=== PATIENT | female | born 1985 | race Caucasian/White ===

== ENCOUNTER 2020-01-03 21:11 | Emergency (ER) | payer BC, OTHER ==
[~2020-01-03] VITALS: Ht 172.2 cm; Wt 130.6 kg
--- OUTSIDE RECORDS SUMMARY | 2020-01-03 21:20 | XMS REPORT | Continuity of Care Document ---
Demographics x Preferred Language Unknown Marital Status Unknown Religion Affiliation Unknown Race Unknown Ethnic Group Unknown Author Organization Unknown Address Unknown Phone Unavailable Allergies There is no data. Medications There is no data. Problems There is no data. Procedures There is no data. Results Test Result Range LIPID PANEL - 01/29/19 11:45 CHOLESTEROL, TOTAL 159 mg/dL <200 HDL CHOLESTEROL 28 mg/dL >50 TRIGLYCERIDES 204 mg/dL <150 LDL-CHOLESTEROL 99 mg/dL (calc) NRG CHOL/HDLC RATIO 5.7 (calc) <5.0 NON HDL CHOLESTEROL 131 mg/dL (calc) <13 0 CMP - 01/29/19 11:45 GLUCOSE 93 mg/dL 65-99 UREA NITROGEN (BUN) 12 mg/dL 7-25 CREATININE 0.72 mg/dL 0.50-1.10 eGFR NON-AFR. [place] 112 mL/min/1.73m2 > OR = 60 eGFR 129 mL/min/1.73m2 > OR = 60 BUN/CREATININE RATIO NOT APPLICABLE (calc) 6-22 SODIUM 139 mmol/L 135-146 POTASSIUM 4.4 mmol/L 3.5-5.3 CHLORIDE 104 mmol/L 98-110 CARBON DIOXIDE 24 mmol/L 20-32 CALCIUM 8.8 mg/dL 8.6-10.2 PROTEIN, TOTAL 7.0 g/dL 6.1-8.1 ALBUMIN 4.2 g/dL 3.6-5.1 GLOBULIN 2.8 g/dL (calc) 1.9-3.7 ALBUMIN/GLOBULIN RATIO 1.5 (calc) 1.0-2. 5 BILIRUBIN, TOTAL 0.4 mg/dL 0.2-1.2 ALKALINE PHOSPHATASE 98 U/L 33-115 AST 14 U/L 10-30 ALT 22 U/L 6-29 Encounters ACCT No. Visit Date/Time Discharge Status Pt. Type Provider Facility Loc./Unit Complaint [id number] 02/27/2019 10:00:00 02/27/2019 23:59: 59 CLS Outpatient [facility] [id number] 01/29/2019 11:20:00 Document Registration
[2020-01-03 21:31] VITALS: BP 146/88
[2020-01-03] MEDS ORDERED: RX-ONDANSETRON 4 MG ODT (ZOFRAN) PPK #4 ONE (21:37)
[2020-01-03] MEDS ORDERED: ONDANSETRON 4 MG (ZOFRAN) ORAL DISSOLVE TAB PO STA (21:40)
[2020-01-03] MEDS ORDERED: RX-ONDANSETRON 4 MG ODT (ZOFRAN) PPK #4 PO STA (21:41)
[2020-01-03] MEDS ORDERED: TRIM/SULFAMETH 160/800 (SEPTRA DS) TAB PO ONE (21:45)
[2020-01-03] MEDS ORDERED: LEVOFLOXACIN 500 MG TAB (LEVAQUIN) PO ONE (21:45)
--- NOTE | 2020-01-03 21:49 | ED Integumentary General ---
General Chief Complaint: Skin/Wound Problems Stated Complaint: INFECTED LEFT LEG Nursing Triage Note: Patient states that she had a sore spot in her left groin that began approximately 4-5 days ago. Patient states that it "broke open" at approximately 7am today. Patient describes a foul smelling discharge that continued through the day. Patient states that the area is discolored and she hasn't felt good all day. Patient does have a golf ball sized area that is discolored and swollen. There is a blister like center that is open. No current discharge is noted. History of Present Illness Date Seen by Provider: January 03, 2020 Time Seen by Provider: 21:15 Initial Comments Patient has a lesion on the upper left crease over the thigh started off as a red dot became purple more indurated and larger even up to 4-5 cm and this morning broke open large amount of very purulent foul-smelling material from and no fever no chills but has had some nausea and malaise and just not feeling w ell. Did not see an insect of any kind is never had a MRSA infection before. Timing/Duration: week Severity: moderate Location: extremities Possible Cause: no cause identified, insect bite Associated Symptoms: headache, malaise; No numbness, No rash, No sore throat Allergies and Home Medications Allergies Coded Allergies: Penicillins (Verified Allergy, Severe, Anaphylaxis, 01/03/20) acetaminophen (Verified Allergy, Severe, Anaphylaxis, 01/03/20) cephalexin (Verified Allergy, Severe, Anaphylaxis, 01/03/20) hydrocodone (Verified Allergy, Severe, Anaphylaxis, 01/03/20) Patient Home Medication List Home Medication List Reviewed: Yes Review of Systems Review of Systems Constitutional: No chills, No fever; malaise EENTM: No blurred vision, No double vision, No nose congestion, No throat pain, No throat swelling Respiratory: No cough, No short of breath Cardiovascular: No no symptoms reported Gastrointestinal: No abdominal pain, No constipation, No diarrhea; nausea; No vomiting Genitourinary: No dysuria, No frequency Musculoskeletal: No joint pain, No joint swelling; muscle pain Skin: other (skin lesion left inguinal region) Psychiatric/Neurological: Headache; Denies Numbness, Denies Paresthesia Past Gmysczn-Zdwjrc-Qoabub Hx Past Med/Social Hx: Reviewed Nursing Past Med/Soc Hx Patient Social History Alcohol Use: Denies Use Recreational Drug Use: No Smoking Status: Current Everyday Smoker Type Used: Cigarettes Recent Foreign Travel: No Contact w/Someone Who Travel: No Recent Infectious Disease Expo: No Physical Abuse: No Sexual Abuse: No Mistreated: No Fear: No Past Medical History Surgeries: Yes Appendectomy, Gallbladder, Tonsillectomy Respiratory: No Cardiac: No Neurological: No Genitourinary: No Gastrointestinal: No Musculoskeletal: No Endocrine: No HEENT: No Cancer: No Psychosocial: No Integumentary: No Physical Exam Vital Signs Vital Signs - First Documented 01/03/20 21:31 Temp 37.0 Pulse 93 Resp 18 B/P (MAP) 146/88 (107) Pulse Ox 100 O2 Delivery Room Air Capillary Refill : Less Than 3 Seconds General Appearance: WD/WN, mild distress HEENT: PERRL/EOMI, TMs normal, pharynx normal Neck: non-tender, full range of motion Cardiovascular: regular rate, rhythm, no murmur Respiratory: chest non-tender, lungs clear Gastrointestinal: normal bowel sounds, soft; No distended, No tenderness Extremities: normal range of motion, non-tender, normal inspection Neurologic/Psychiatric: no motor/sensory deficits, normal mood/affect, oriented x 3 Skin: normal color, warm/dry, other (large area of induration at the left inguinal region with the 3 mm open area right in the inguinal area no evidence of fluctuance or obvious liters drained before consistent with a spider bite but also could represent a MRSA infection.) Progress/Results/Core Measures Results/Orders My Orders Orders - SANDRA ROLDAN JR, MD Sulfamethoxazole/Trimet Ds Tab (Bactrim (01/03/20 21:45) Levofloxacin Tablet (Levaquin Tablet) (01/03/20 21:45) Ondansetron Oral Dissolve Tab (Zofran (01/03/20 21:40) Rx-Ondansetron Po (Rx-Zofran Po) (01/03/20 21:41) Vital Signs/I&O 01/03/20 21:31 Temp 37.0 Pulse 93 Resp 18 B/P (MAP) 146/88 (107) Pulse Ox 100 O2 Delivery Room Air Blood Pressure Mean: 107 Progress Progress Note : Time: 21:47 Progress Note Noting May presentation classic look for brown recluse bites of the feel like this was #1 although MRSA could possibly present like this since she is allergic to several antibiotics will cover her with Levaquin and Bactrim give her some Zofran will follow-up if problems didn't say this could get worse with rash body aches fever and chills as well and would need to recheck with her PCP Departure Impression Primary Impression: Brown recluse spider bite Qualified Codes: T63.331A - Toxic effect of venom of brown jackiese spider, accidental (unintentional), initial encounter Disposition: HOME, SELF-CARE Condition: Stable Departure-Patient Inst. Referrals: YU HINTON (PCP/Family) Primary Care Physician Patient Instructions: Spider Bites Scripts Sulfamethoxazole/Trimethoprim (Bactrim Ds Tablet) 1 Each Tablet 1 EACH PO BID, #20 TAB Prov: SANDRA ROLDAN JR, MD 01/03/20 Levofloxacin (Levaquin) 500 Mg Tablet 500 MG PO DAILY for 10 Days, #10 TAB Prov: SANDRA ROLDAN JR, MD 01/03/20 SANDRA ROLDAN JR, MD January 03, 2020 21:49
[2020-01-03] MEDS ORDERED: LEVO500T2 PO (21:50)
[2020-01-03] MEDS ORDERED: SULF1TAB35 PO (21:50)
== END 2020-01-03 21:53 | disposition home or self-care (01) ==
LOC: ER FS 21:16
DX: T63.331A Toxic effect of venom of brown recluse spider, accidental (unintentional), initial encounter (principal); F17.210 Nicotine dependence, cigarettes, uncomplicated; Z88.0 Allergy status to penicillin; Z88.6 Allergy status to analgesic agent; Z88.1 Allergy status to other antibiotic agents; Z88.5 Allergy status to narcotic agent
CPT/HCPCS: 99283

== ENCOUNTER 2020-02-28 22:05 | Emergency (ER) | payer BC ==
[~2020-02-28] VITALS: Ht 172 cm; Wt 132.0 kg
[~2020-02-28 22:05] MED LIST: LEVO500T2 PO; SULF1TAB35 PO
--- OUTSIDE RECORDS SUMMARY | 2020-02-28 22:12 | XMS REPORT | Continuity of Care Document ---
Demographics x Preferred Language Unknown Marital Status Unknown Judaism Affiliation Unknown Race Unknown Ethnic Group Unknown Author Organization Unknown Address Unknown Phone Unavailable Allergies Active Description Code Type Severity Reaction Onset Reported/Identified Relationship to Patient Clinical Status Yes acetaminophen [id number] Dung g Allergy Severe Anaphylaxis 01/03/2020 Yes cephalexin [id number] Drug Allerg y Severe Anaphylaxis 01/03/2020 Yes hydrocodone [id number] Drug Aller gy Severe Anaphylaxis 01/03/2020 Yes Penicillins [id number] Drug Aller gy Severe Anaphylaxis 01/03/2020 Medications There is no data. Problems Date Dx Coded Attending Type Code Diagnosis Diagnosed By 01/03/2020 SANDRA ROLDAN MD, Ot F17.210 NICOTINE DEPENDENCE, CIGARETTES, UNCOMPL 01/03/2020 SANDRA ROLDAN MD Ot T63.331A TOXIC EFFECT OF VENOM OF BROWN RECLUSE S 01/03/2020 SANDRA ROLDAN MD Ot Z88.0 ALLERGY STATUS TO PENICILLIN 01/03/2020 SANDRA ROLDAN MD Ot Z88.1 ALLERGY STATUS TO OTHER ANTIBIOTIC AGENT 01/03/2020 SANDRA ROLDAN MD Ot Z88.5 ALLERGY STATUS TO NARCOTIC AGENT STATUS 01/03/2020 SANDRA ORLDAN MD Ot Z88.6 ALLERGY STATUS TO ANALGESIC AGENT STATUS 01/05/2020 SANDRA ROLDAN MD Ot F17.210 NICOTINE DEPENDENCE, CIGARETTES, UNCOMPL 01/05/2020 SANDRA ROLDAN MD Ot T63.331A TOXIC EFFECT OF VENOM OF BROWN RECLUSE S 01/05/2020 SANDRA ROLDAN MD Ot Z88.0 ALLERGY STATUS TO PENICILLIN 01/05/2020 SANDRA ROLDAN MD Ot Z88.1 ALLERGY STATUS TO OTHER ANTIBIOTIC AGENT 01/05/2020 SANDRA ROLDAN MD Ot Z88.5 ALLERGY STATUS TO NARCOTIC AGENT STATUS 01/05/2020 SANDRA ROLDAN MD, Ot Z88.6 ALLERGY STATUS TO ANALGESIC AGENT STATUS Procedures There is no data. Results Test Result Range LIPID PANEL - 01/29/19 11:45 CHOLESTEROL, TOTAL 159 mg/dL <200 HDL CHOLESTEROL 28 mg/dL >50 TRIGLYCERIDES 204 mg/dL <150 LDL-CHOLESTEROL 99 mg/dL (calc) NRG CHOL/HDLC RATIO 5.7 (calc) <5.0 NON HDL CHOLESTEROL 131 mg/dL (calc) <13 0 [facility] - 01/29/19 11:45 GLUCOSE 93 mg/dL 65-99 UREA NITROGEN (BUN) 12 mg/dL 7-25 CREATININE 0.72 mg/dL 0.50-1.10 eGFR NON-AFR. KYRGY[place] 112 mL/min/1.73m2 > OR = 60 eGFR [...] 14 U/L 10-30 ALT 22 U/L 6-29 [facility] - 01/20/20 15:12 GLUCOSE 79 mg/dL 65-99 UREA NITROGEN (BUN) 10 mg/dL 7-25 CREATININE 0.81 mg/dL 0.50-1.10 eGFR NON-AFR. KYRGYZ 96 mL/min/1.73m2 > OR = 60 eGFR 111 mL/min/1.73m2 > OR = 60 BUN/CREATININE RATIO NOT APPLICABLE (calc) 6-22 SODIUM 139 mmol/L 135-146 POTASSIUM 4.2 mmol/L 3.5-5.3 CHLORIDE 104 mmol/L 98-110 CARBON DIOXIDE 25 mmol/L 20-32 CALCIUM 8.8 mg/dL 8.6-10.2 PROTEIN, TOTAL 6.8 g/dL 6.1-8.1 ALBUMIN 4.1 g/dL 3.6-5.1 GLOBULIN 2.7 g/dL (calc) 1.9-3.7 ALBUMIN/GLOBULIN RATIO 1.5 (calc) 1.0-2. 5 BILIRUBIN, TOTAL 0.5 mg/dL 0.2-1.2 ALKALINE PHOSPHATASE 108 U/L 31-125 AST 15 U/L 10-30 ALT 24 U/L 6-29 Encounters ACCT No. Visit Date/Time Discharge Status Pt. Type Provider Facility Loc./Unit Complaint [id number] 02/27/2019 10:00:00 02/27/2019 23:59: 59 CLS Outpatient [facility] [id number] 01/20/2020 08:00:00 Document Registration [id number] 01/29/2019 11:20:00 Document Registration [id number] 01/03/2020 21:16:00 020 21:53:00 DIS Emergency JAMAR DIAZ, SANDRA Olsen [facility] FS INFECTED LEFT LEG
[2020-02-28] MEDS ORDERED: LIDOCAINE 1% INJ 20 ML 20 ML VIAL INJ ONE (22:45)
--- NOTE | 2020-02-28 23:16 | ED Integumentary General ---
General Chief Complaint: Skin/Wound Problems Stated Complaint: RIGHT LEG INFECTION Nursing Triage Note: Pt presents with an abscess to right inner thigh that she noticed about 4 days ago Source: patient History of Present Illness Date Seen by Provider: Feb 28, 2020 Time Seen by Provider: 23:09 Initial Comments Pt presents with abscess to right inner thigh x about 4 days. She also has some impetigo like spots on her abdomen. No prior abscesses. It is painful. Allergies and Home Medications Allergies Coded Allergies: Penicillins (Verified Allergy, Severe, Anaphylaxis, 01/03/20) acetaminophen (Verified Allergy, Severe, Anaphylaxis, 01/03/20) cephalexin (Verified Allergy, Severe, Anaphylaxis, 01/03/20) hydrocodone (Verified Allergy, Severe, Anaphylaxis, 01/03/20) Home Medications Levofloxacin 500 Mg Tablet, 500 MG PO DAILY Prescribed by: SANDRA ROLDAN on 01/03/202149 Sulfamethoxazole/Trimethoprim 1 Each Tablet, 1 EACH PO BID Prescribed by: SANDRA ROLDAN on 01/03/202149 Patient Home Medication List Home Medication List Reviewed: Yes Review of Systems Review of Systems Constitutional: no symptoms reported; No chills, No fever Respiratory: no symptoms reported Cardiovascular: no symptoms reported Gastrointestinal: No nausea, No vomiting Skin: rash, other (Abscess) Past Zecqotp-Yiaulo-Ninhfe Hx Patient Social History Alcohol Use: Denies Use Recreational Drug Use: No Smoking Status: Current Everyday Smoker Type Used: Cigarettes Recent Foreign Travel: No Contact w/Someone Who Travel: No Recent Infectious Disease Expo: No Physical Abuse: No Sexual Abuse: No Past Medical History Surgeries: Yes Appendectomy, Gallbladder, Tonsillectomy Respiratory: No Cardiac: No Neurological: No Genitourinary: No Gastrointestinal: No Musculoskeletal: No Endocrine: No HEENT: No Cancer: No Psychosocial: No Integumentary: No Blood Disorders: No Physical Exam Vital Signs Vital Signs - First Documented 02/28/20 22:10 Temp 37.2 Pulse 84 Resp 18 B/P (MAP) 147/95 (112) Pulse Ox 99 O2 Delivery Room Air Capillary Refill : Less Than 3 Seconds General Appearance: WD/WN Respiratory: no respiratory distress Extremities: normal range of motion Skin: other (right inner thigh small abscess with fluctuance and swelling) Skin Problem Location: other (Reddish crusted lesions on abdomen) Procedures/Interventions I&D : Site: Right thigh Blade Size: 11 Progress Purulent discharge expressed, cultured obtained, wound not packed. Progress/Results/Core Measures Results/Orders My Orders Orders - SAGE POTTER MD Lidocaine 1% Inj 20 Ml (Xylocaine 1% Inj (02/28/20 22:45) Tramadol Tablet (Ultram Tablet) (02/28/20 22:45) Wound Culture (02/28/20 22:45) Medications Given in ED Current Medications Medications Dose Ordered Sig/Lashae Route Start Time Stop Time Status Last Admin Dose Admin Lidocaine HCl 20 ml ONCE ONCE INJ 02/28/20 22:45 02/28/20 22:50 DC 02/28/20 23:04 20 ML Tramadol HCl 50 mg ONCE ONCE PO 02/28/20 22:45 02/28/20 22:50 DC 02/28/20 23:04 50 MG Vital Signs/I&O 02/28/20 22:10 Temp 37.2 Pulse 84 Resp 18 B/P (MAP) 147/95 (112) Pulse Ox 99 O2 Delivery Room Air Blood Pressure Mean: 112 Departure Impression Primary Impression: Abscess Disposition: 01 HOME, SELF-CARE Condition: Improved Departure-Patient Inst. Decision time for Depature: 23:35 Referrals: YU HINTON (PCP) Primary Care Physician Patient Instructions: Abscess Incision and Drainage (DC) Scripts Tramadol HCl (Ultram) 50 Mg Tablet 50 MG PO Q6H PRN for PAIN-MODERATE (5-7), #12 TAB Prov: SAGE POTTER MD 02/28/20 Sulfamethoxazole/Trimethoprim (Bactrim Ds Tablet) 1 Each Tablet 1 EACH PO BID for 7 Days, #14 TAB Prov: SAGE POTTER MD 02/28/20 SAGE POTTER MD Feb 28, 2020 23:15
[2020-02-28] MEDS ORDERED: TRAM-42 PO (23:39)
[2020-02-28] MEDS ORDERED: SULF1TAB35 PO (23:39)
[2020-02-28 23:41] VITALS: BP 147/95
== END 2020-02-28 23:43 | disposition home or self-care (01) ==
LOC: EDUNIT# 22:05 → ER FS 22:08
DX: L02.415 Cutaneous abscess of right lower limb (principal); Z88.6 Allergy status to analgesic agent; Z88.1 Allergy status to other antibiotic agents; Z88.5 Allergy status to narcotic agent; Z79.890 Hormone replacement therapy; F17.210 Nicotine dependence, cigarettes, uncomplicated
CPT/HCPCS: 87070; 87077; 87205; 99283